=== PATIENT | female | born 1995 | race Caucasian/White ===

== ENCOUNTER 2018-05-04 01:18 | Emergency (ER) | payer OTHER ==
[~2018-05-04] VITALS: Ht 172.7 cm; Wt 123.8 kg
--- NOTE | 2018-05-04 01:45 | NUR ---
ER AT BEDSIDE
--- NOTE | 2018-05-04 01:45 | NUR ---
-2 station, no dilation and effacement, no vaginal discharge/bloody show noted
[2018-05-04 01:51] LABS: BASOPHILS % 0.2 % (0.0-1.0); EOSINOPHILS # (AUTO) 0.1 (0.0-0.4); EOSINOPHILS % 1.1 % (0.0-6.0); HEMATOCRIT 33.8 % (34.2-44.1); HEMOGLOBIN 10.6 g/dL (12.0-16.0); LYMPHOCYTES % 15.3 % (18.0-39.1); MEAN CORPUSCULAR HEMOGLOBIN 27.3 pg (28-32); MEAN CORPUSCULAR HGB CONC 31.4 g/dL (31-35); MEAN CORPUSCULAR VOLUME 87.1 fL (81-99); MONOCYTES # (AUTO) 0.8 (0.2-0.8); MONOCYTES % 5.9 % (4.4-11.3); NEUTROPHILS # (AUTO) 9.9 (2.1-6.9); NEUTROPHILS % 76.3 % (38.7-80.0); PLATELET COUNT 319 x10e3/uL (140-360); RED BLOOD COUNT 3.88 x10e6/uL (3.6-5.1); RED CELL DISTRIBUTION WIDTH 14.7 % (11.7-14.4)
[2018-05-04 01:58] LABS: ALBUMIN 2.2 g/dL (3.5-5.0); ALBUMIN/GLOBULIN RATIO 0.5 (0.8-2.0); ALKALINE PHOSPHATASE 117 IU/L (40-150); ANION GAP 12.6 mmol/L (8-16); BLOOD UREA NITROGEN 10 mg/dL (7-26); BUN/CREATININE RATIO 15 (6-25); CALCIUM 10.2 mg/dL (8.4-10.2); CARBON DIOXIDE 22 mmol/L (22-29); CHLORIDE 107 mmol/L (98-107); CREATININE, SERUM 0.66 mg/dL (0.57-1.11); EST GLOMERULAR FILTRATION RATE > 60 ML/MIN (60-); GLUCOSE 102 mg/dL (74-118); MAGNESIUM 1.7 MG/DL (1.3-2.1); POTASSIUM 4.6 mmol/L (3.5-5.1); SODIUM 137 mmol/L (136-145)
[2018-05-04 02:00] LABS: ALANINE AMINOTRANSFERASE < 6 IU/L (0-55)
== END 2018-05-04 02:22 | disposition other institution (70) ==
LOC: ER 01:18
DX: O60.03 Preterm labor without delivery, third trimester (principal); E11.9 Type 2 diabetes mellitus without complications
CPT/HCPCS: 36415; 80053; 83735; 85025; 99284

== ENCOUNTER 2019-10-15 09:37 | Emergency (ER) | payer SELFPAY ==
[~2019-10-15] VITALS: Ht 172.7 cm; Wt 123.8 kg
--- OUTSIDE RECORDS SUMMARY | 2019-10-15 09:57 | XMS REPORT | Continuity of Care Document ---
Author Author [facility] t Organization [facility] Address [address] [place] [address] Phone Unavailable Care Team Providers Care Contracting Analyst Name Role Phone NONSTAFF PCP Unavailable Doctor Unassigned, Name No Attphys Unavailable Ingacio Redd RN Attphys Unavailable Robe Rubin DO Attphys Yang Mendez Attphys Payers Payer Name Policy Type Policy Number Effective Date Expiration Date S ource Problems This patient has no known problems. Allergies, Adverse Reactions, Alerts Allergy Name Allergy Type Status Severity Reaction(s) Onset Date Inacti ve Date Treating Clinician Comments Source No Known Allergies DA Active U 2019-01-23 00:00:00 [facility] No Known Allergies DA Active U 2018-05-04 00:00:00 [facility] No Known Allergies DA Active U 2018-04-16 00:00:00 [facility] Medications This patient has no known medications. Procedures This patient has no known procedures. Encounters Start Date/Time End Date/Time Encounter Type [facility] Encounter ID Source 2019-09-02 00:00:00 2019-09-02 00:00:00 Refill Doctor Unassigned, [place] [facility] [id number] 2019-08-08 00:00:00 2019-08-08 00:00:00 Telephone Tramaine Adeola Pierre [facility] [id number] 2019-08-04 14:59:40 2019-08-04 16:20:00 Emergency Scottie [facility] ([facility]) [id number] 2019-03-07 00:00:00 2019-03-07 00:00:00 Letter (Out) Yang [facility] [id number] 2019-02-24 17:34:53 2019-02-24 18:22:00 Emergency Yang [facility] [id number] 2019-02-15 00:00:00 2019-02-15 00:00:00 Orders Only D octor Unassigned, [place] [facility] [id number] 2018-05-04 01:18:00 2018-05-04 02:22:00 Departed Emergency Room [facility] [id number] [facility] Results Test Description Test Time Test Comments Results Result Comments Source CBC W/AUTO DIFF 2018-05-05 08:00:00 Test Item WHITE BLOOD CELL (test code = WBC) 11.9 K/mm3 4.5-12.5 N RED BLOOD CELL (test code = RBC) 2.98 mill/mm3 3.7-5.2 L HEMOGLOBIN (test code = HGB) 7.8 gram/dL 11.5-15.5 L HEMATOCRIT (test code = HCT) 27.1 % 36.0-46.0 L MEAN CELL VOLUME (test code = MCV) 90.9 fL 80-98 N MEAN CELL HGB (test code = MCH) 26.2 picogram 27.0-33.0 L MEAN CELL HGB CONCETRATION (test code = MCHC) 28.8 gram/dL 33.0-36. 0 L RED CELL DISTRIBUTION WIDTH (test code = RDW) 15.4 % 11.6-16. 2 N RED CELL DISTRIBUTION WIDTH SD (test code = RDW-SD) 49.2 fL 37 .0-51.0 N PLATELET COUNT (test code = PLT) 240 K/mm3 150-450 MEAN PLATELET VOLUME (test code = MPV) 9.7 fL 6.7-11.0 N NEUTROPHIL % (test code = NT%) 74.3 % 39.0-69.0 H IMMATURE GRANULOCYTE % (test code = IG%) 0.9 % 0.0-5.0 N LYMPHOCYTE % (test code = LY%) 16.2 % 25.0-55.0 L MONOCYTE % (test code = MO%) 7.7 % 0.0-10.0 N EOSINOPHIL % (test code = EO%) 0.5 % 0.0-5.0 N BASOPHIL % (test code = BA%) 0.4 % 0.0-1.0 N NUCLEATED RBC % (test code = NRBC%) 0.0 % 0-0 N NEUTROPHIL # (test code = NT#) 8.86 K/mm3 1.8-7.7 H IMMATURE GRANULOCYTE # (test code = IG#) 0.11 x10 3/uL 0-0.03 H LYMPHOCYTE # (test code = LY#) 1.94 K/mm3 1.0-5.0 N MONOCYTE # (test code = MO#) 0.92 K/mm3 0-0.8 H EOSINOPHIL # (test code = EO#) 0.06 K/mm3 0.0-0.5 N BASOPHIL # (test code = BA#) 0.05 K/mm3 0.0-0.2 N NUCLEATED RBC # (test code = NRBC#) 0.00 K/mm3 0.0-0.1 N MANUAL DIFF REQUIRED (test code = MDIFF) NO, ONLY SCAN NEEDED COMMENTS TO SOFTWARE QA MANAGER: 1ST DAYDIFFERENTIAL [id number] 08:00:00 * Test Item Value Reference Range Interpretation Comments STAIN ACCEPTABILITY (test code = STN ACCEPTABLE) STAIN ACCEPTABLE MORPHOLOGY COMMENT (test code = MOC) NORMAL PLATELET ESTIMATE (test code = PLTEST) ADEQUATE PLATELET MORPHOLOGY (test code = PLTMORPH) NORMAL COMMENTS TO SOFTWARE QA MANAGER: 1ST DAYCBC W/AUTO [id number] 06:39:00* Test Item Value Reference Range Interpretation Comments WHITE BLOOD CELL (test code = WBC) 11.9 K/mm3 4.5-12.5 N RED BLOOD CELL (test code = RBC) 2.98 mill/mm3 3.7-5.2 L HEMOGLOBIN (test code = HGB) 7.8 gram/dL 11.5-15.5 L HEMATOCRIT (test code = HCT) 27.1 % 36.0-46.0 L MEAN CELL VOLUME (test code = MCV) 90.9 fL 80-98 N MEAN CELL HGB (test code = MCH) 26.2 picogram 27.0-33.0 L MEAN CELL HGB CONCETRATION (test code = MCHC) 28.8 gram/dL 33.0-36. 0 L RED CELL DISTRIBUTION WIDTH (test code = RDW) 15.4 % 11.6-16. 2 N RED CELL DISTRIBUTION WIDTH SD (test code = RDW-SD) 49.2 fL 37 .0-51.0 N PLATELET COUNT (test code = PLT) 240 K/mm3 150-450 MEAN PLATELET VOLUME (test code = MPV) 9.7 fL 6.7-11.0 N NEUTROPHIL % (test code = NT%) 74.3 % 39.0-69.0 H IMMATURE GRANULOCYTE % (test code = IG%) 0.9 % 0.0-5.0 N LYMPHOCYTE % (test code = LY%) 16.2 % 25.0-55.0 L MONOCYTE % (test code = MO%) 7.7 % 0.0-10.0 N EOSINOPHIL % (test code = EO%) 0.5 % 0.0-5.0 N BASOPHIL % (test code = BA%) 0.4 % 0.0-1.0 N NUCLEATED RBC % (test code = NRBC%) 0.0 % 0-0 N NEUTROPHIL # (test code = NT#) 8.86 K/mm3 1.8-7.7 H IMMATURE GRANULOCYTE # (test code = IG#) 0.11 x10 3/uL 0-0.03 H LYMPHOCYTE # (test code = LY#) 1.94 K/mm3 1.0-5.0 N MONOCYTE # (test code = MO#) 0.92 K/mm3 0-0.8 H EOSINOPHIL # (test code = EO#) 0.06 K/mm3 0.0-0.5 N BASOPHIL # (test code = BA#) 0.05 K/mm3 0.0-0.2 N NUCLEATED RBC # (test code = NRBC#) 0.00 K/mm3 0.0-0.1 N MANUAL DIFF REQUIRED (test code = MDIFF) NO, ONLY SCAN NEEDED COMMENTS TO SOFTWARE QA MANAGER: 1ST DAYDIFFERENTIAL [id number] 06:39:00 * Test Item Value Reference Range Interpretation Comments STAIN ACCEPTABILITY (test code = STN ACCEPTABLE) CABOT RINGS (test code = CAB) MORPHOLOGY COMMENT (test code = MOC) PLATELET ESTIMATE (test code = PLTEST) PLATELET MORPHOLOGY (test code = PLTMORPH) COMMENTS TO SOFTWARE QA MANAGER: 1ST DAYCBC W/AUTO [id number] 06:39:00* Test Item Value Reference Range Interpretation Comments WHITE BLOOD CELL (test code = WBC) 11.9 K/mm3 4.5-12.5 N RED BLOOD CELL (test code = RBC) 2.98 mill/mm3 3.7-5.2 L HEMOGLOBIN (test code = HGB) 7.8 gram/dL 11.5-15.5 L HEMATOCRIT (test code = HCT) 27.1 % 36.0-46.0 L MEAN CELL VOLUME (test code = MCV) 90.9 fL 80-98 N MEAN CELL HGB (test code = MCH) 26.2 picogram 27.0-33.0 L MEAN CELL HGB CONCETRATION (test code = MCHC) 28.8 gram/dL 33.0-36. 0 L RED CELL DISTRIBUTION WIDTH (test code = RDW) 15.4 % 11.6-16. 2 N RED CELL DISTRIBUTION WIDTH SD (test code = RDW-SD) 49.2 fL 37 .0-51.0 N PLATELET COUNT (test code = PLT) 240 K/mm3 150-450 MEAN PLATELET VOLUME (test code = MPV) 9.7 fL 6.7-11.0 N NEUTROPHIL % (test code = NT%) 74.3 % 39.0-69.0 H IMMATURE GRANULOCYTE % (test code = IG%) 0.9 % 0.0-5.0 N LYMPHOCYTE % (test code = LY%) 16.2 % 25.0-55.0 L MONOCYTE % (test code = MO%) 7.7 % 0.0-10.0 N EOSINOPHIL % (test code = EO%) 0.5 % 0.0-5.0 N BASOPHIL % (test code = BA%) 0.4 % 0.0-1.0 N NUCLEATED RBC % (test code = NRBC%) 0.0 % 0-0 N NEUTROPHIL # (test code = NT#) 8.86 K/mm3 1.8-7.7 H IMMATURE GRANULOCYTE # (test code = IG#) 0.11 x10 3/uL 0-0.03 H LYMPHOCYTE # (test code = LY#) 1.94 K/mm3 1.0-5.0 N MONOCYTE # (test code = MO#) 0.92 K/mm3 0-0.8 H EOSINOPHIL # (test code = EO#) 0.06 K/mm3 0.0-0.5 N BASOPHIL # (test code = BA#) 0.05 K/mm3 0.0-0.2 N NUCLEATED RBC # (test code = NRBC#) 0.00 K/mm3 0.0-0.1 N MANUAL DIFF REQUIRED (test code = MDIFF) NO, ONLY SCAN NEEDED COMMENTS TO SOFTWARE QA MANAGER: 1ST DAYDIFFERENTIAL [id number] 06:39:00 * Test Item Value Reference Range Interpretation Comments STAIN ACCEPTABILITY (test code = STN ACCEPTABLE) CABOT RINGS (test code = CAB) MORPHOLOGY COMMENT (test code = MOC) PLATELET ESTIMATE (test code = PLTEST) PLATELET MORPHOLOGY (test code = PLTMORPH) COMMENTS TO SOFTWARE QA MANAGER: 1ST DAYCBC W/AUTO [id number] 06:39:00* Test Item Value Reference Range Interpretation Comments WHITE BLOOD CELL (test code = WBC) 11.9 K/mm3 4.5-12.5 N RED BLOOD CELL (test code = RBC) 2.98 mill/mm3 3.7-5.2 L HEMOGLOBIN (test code = HGB) 7.8 gram/dL 11.5-15.5 L HEMATOCRIT (test code = HCT) 27.1 % 36.0-46.0 L MEAN CELL VOLUME (test code = MCV) 90.9 fL 80-98 N MEAN CELL HGB (test code = MCH) 26.2 picogram 27.0-33.0 L MEAN CELL HGB CONCETRATION (test code = MCHC) 28.8 gram/dL 33.0-36. 0 L RED CELL DISTRIBUTION WIDTH (test code = RDW) 15.4 % 11.6-16. 2 N RED CELL DISTRIBUTION WIDTH SD (test code = RDW-SD) 49.2 fL 37 .0-51.0 N PLATELET COUNT (test code = PLT) 240 K/mm3 150-450 MEAN PLATELET VOLUME (test code = MPV) 9.7 fL 6.7-11.0 N NEUTROPHIL % (test code = NT%) 74.3 % 39.0-69.0 H IMMATURE GRANULOCYTE % (test code = IG%) 0.9 % 0.0-5.0 N LYMPHOCYTE % (test code = LY%) 16.2 % 25.0-55.0 L MONOCYTE % (test code = MO%) 7.7 % 0.0-10.0 N EOSINOPHIL % (test code = EO%) 0.5 % 0.0-5.0 N BASOPHIL % (test code = BA%) 0.4 % 0.0-1.0 N NUCLEATED RBC % (test code = NRBC%) 0.0 % 0-0 N NEUTROPHIL # (test code = NT#) 8.86 K/mm3 1.8-7.7 H IMMATURE GRANULOCYTE # (test code = IG#) 0.11 x10 3/uL 0-0.03 H LYMPHOCYTE # (test code = LY#) 1.94 K/mm3 1.0-5.0 N MONOCYTE # (test code = MO#) 0.92 K/mm3 0-0.8 H EOSINOPHIL # (test code = EO#) 0.06 K/mm3 0.0-0.5 N BASOPHIL # (test code = BA#) 0.05 K/mm3 0.0-0.2 N NUCLEATED RBC # (test code = NRBC#) 0.00 K/mm3 0.0-0.1 N MANUAL DIFF REQUIRED (test code = MDIFF) NO, ONLY SCAN NEEDED COMMENTS TO SOFTWARE QA MANAGER: 1ST DAYDIFFERENTIAL [id number] 06:39:00 * Test Item Value Reference Range Interpretation Comments STAIN ACCEPTABILITY (test code = STN ACCEPTABLE) MORPHOLOGY COMMENT (test code = MOC) PLATELET ESTIMATE (test code = PLTEST) PLATELET MORPHOLOGY (test code = PLTMORPH) COMMENTS TO SOFTWARE QA MANAGER: 1ST DAYCBC W/AUTO [id number] 06:39:00* Test Item Value Reference Range Interpretation Comments WHITE BLOOD CELL (test code = WBC) 11.9 K/mm3 4.5-12.5 N RED BLOOD CELL (test code = RBC) 2.98 mill/mm3 3.7-5.2 L HEMOGLOBIN (test code = HGB) 7.8 gram/dL 11.5-15.5 L HEMATOCRIT (test code = HCT) 27.1 % 36.0-46.0 L MEAN CELL VOLUME (test code = MCV) 90.9 fL 80-98 N MEAN CELL HGB (test code = MCH) 26.2 picogram 27.0-33.0 L MEAN CELL HGB CONCETRATION (test code = MCHC) 28.8 gram/dL 33.0-36. 0 L RED CELL DISTRIBUTION WIDTH (test code = RDW) 15.4 % 11.6-16. 2 N RED CELL DISTRIBUTION WIDTH SD (test code = RDW-SD) 49.2 fL 37 .0-51.0 N PLATELET COUNT (test code = PLT) 240 K/mm3 150-450 MEAN PLATELET VOLUME (test code = MPV) 9.7 fL 6.7-11.0 N NEUTROPHIL % (test code = NT%) 74.3 % 39.0-69.0 H IMMATURE GRANULOCYTE % (test code = IG%) 0.9 % 0.0-5.0 N LYMPHOCYTE % (test code = LY%) 16.2 % 25.0-55.0 L MONOCYTE % (test code = MO%) 7.7 % 0.0-10.0 N EOSINOPHIL % (test code = EO%) 0.5 % 0.0-5.0 N BASOPHIL % (test code = BA%) 0.4 % 0.0-1.0 N NUCLEATED RBC % (test code = NRBC%) 0.0 % 0-0 N NEUTROPHIL # (test code = NT#) 8.86 K/mm3 1.8-7.7 H IMMATURE GRANULOCYTE # (test code = IG#) 0.11 x10 3/uL 0-0.03 H LYMPHOCYTE # (test code = LY#) 1.94 K/mm3 1.0-5.0 N MONOCYTE # (test code = MO#) 0.92 K/mm3 0-0.8 H EOSINOPHIL # (test code = EO#) 0.06 K/mm3 0.0-0.5 N BASOPHIL # (test code = BA#) 0.05 K/mm3 0.0-0.2 N NUCLEATED RBC # (test code = NRBC#) 0.00 K/mm3 0.0-0.1 N MANUAL DIFF REQUIRED (test code = MDIFF) NO, ONLY SCAN NEEDED COMMENTS TO SOFTWARE QA MANAGER: DAYDIFFERENTIAL [id number] 06:39:00 * Test Item Value Reference Range Interpretation Comments STAIN ACCEPTABILITY (test code = STN ACCEPTABLE) CABOT RINGS (test code = CAB) MORPHOLOGY COMMENT (test code = MOC) PLATELET ESTIMATE (test code = PLTEST) PLATELET MORPHOLOGY (test code = PLTMORPH) COMMENTS TO SOFTWARE QA MANAGER: DAYBASIC METABOLIC [id number] 06:19:00* Test Item Value Reference Range Interpretation Comments SODIUM (test code = NA) 139 mmol/L 136-145 N POTASSIUM (test code = K) 4.8 mmol/L 3.5-5.1 N CHLORIDE (test code = CL) 107.0 mmol/L 98-107 N CARBON DIOXIDE (test code = CO2) 24.0 mmol/L 21-32 N ANION GAP (test code = GAP) 12.8 10-20 N GLUCOSE (test code = GLU) 86 mg/dL 74-106 N BLOOD UREA NITROGEN (test code = BUN) 14 mg/dL 7-18 N GLOMERULAR FILTRATION RATE (test code = GFR) > 60 mL/min >=60 Estimated GFR by using Modified MDRD formula.Chronic kidney disease is defined as either kidney damageor GFR <60 mL/min/1.73 m2 for >3 months. CREATININE (test code = CREAT) 0.80 mg/dL 0.55-1.02 N Note change in reference range due to change in reagent. BUN/CREATININE RATIO (test code = BUN/CREA) 17.5 10-20 N CALCIUM (test code = CA) 8.5 mg/dL 8.5-10.1 N BASIC METABOLIC [id number] 06:08:00* Test Item Value Reference Range Interpretation Comments SODIUM (test code = NA) 139 mmol/L 136-145 N POTASSIUM (test code = K) 4.8 mmol/L 3.5-5.1 N CHLORIDE (test code = CL) 107.0 mmol/L 98-107 N CARBON DIOXIDE (test code = CO2) mmol/L 21-32 ANION GAP (test code = GAP) 10-20 GLUCOSE (test code = GLU) mg/dL 74-106 BLOOD UREA NITROGEN (test code = BUN) mg/dL 7-18 GLOMERULAR FILTRATION RATE (test code = GFR) mL/min >=60 CREATININE (test code = CREAT) mg/dL 0.55-1.02 BUN/CREATININE RATIO (test code = BUN/CREA) 10-20 CALCIUM (test code = CA) mg/dL 8.5-10.1 - US [id number] 09:32:00 Name: YAYA DOYLE [facility] : 1995 Age/S: 22 / F [address] [facility] Unit #: [id number] Loc: [place] [address] Phys: Colby Wolf MD Acct: [id number] Dis Date: Status: ADM IN PHONE #: [phone] Exam Date: 05/04/2018 0904 FAX #: [phone] Reason: assess EFW in gestational diabetic in with SROM EXAMS: CPT CODE: [id number] [place] LTD 55583 HISTORY: EFW evaluation with gestational diabetic with spontaneous rupture of membranes. Limited ultrasound. COMPARISON: None available. Single live intrauterine gestation in cephalic presentation. Cardiac activity documented at 134 beats per minutes. Placental position is fundal, grade is 3. No previa is visible. Estimated weight was calculated to 4095 g or 9 pounds and 0 ounces which is greater than 97th percentile. IMPRESSION: Estimated weight of 4095 g or 9 pounds and 0 ounces which is within greater than 97th percentile. at 0932 Reported and signed by: Brian Luu M.D. CC: Kahlil Cobb MD; Rosemarie Silveira CNM; Colby Wolf MD Technologist: NAHID NATH Trnvtb Date/Time: 05/04/2018 (0932) [email or web address] Orig Print D/T: S: 05/04/2018 (0935) Probe: PAGE 1 Signed Report HIV 1 2 COMBO AG/AB [id number] 07:23:00* Test Item Value Reference Range Interpretation Comments HIV 1 2 COMBO AG/AB SCREEN (test code = [id number]) AB/AG NO N REACTIVE NONREACTIVE NONREACTIVE HIV P24 ANTI GEN NONREACTIVE NONREACTIVE HIV 1&2 ANTIBODY NONREACTIVE THE HIV-1 P24 TEST HELPS DISTINGUISH ACUTE HIV-1INFECTIONFROM ESTABLISHED HIV-1 INFECTION WHEN THE SPECIMEN ISPOSITIVE FOR HIV-1 P24 ANTIGEN. HIV-1 P24 ANTIGEN IS HIGHEST IN THE FIRST FEW WEEKS AFTERINFECTION URINALYSIS [id number] 06:25:00* Test Item Value Reference Range Interpretation Comments UA COLOR (test code = COLU) DARK YELLOW YELLOW A UA APPEARANCE (test code = APPU) SLIGHTLY CLOUDY CLEAR A UA GLUCOSE DIPSTICK (test code = DGLUU) NEGATIVE mg/dL NEGATIVE UA BILIRUBIN DIPSTICK (test code = BILU) NEGATIVE mg/dL NEGATIVE UA KETONE DIPSTICK (test code = KETU) 20 (Small) mg/dL NEGATIVE A UA SPECIFIC GRAVITY (test code = SGU) 1.026 1.001-1.035 UA BLOOD DIPSTICK (test code = HESHAM) Negative NEGATIVE UA PH DIPSTICK (test code = JASIEL) 6.0 5.0-8.0 UA PROTEIN DIPSTICK (test code = PROU) 100 (2+) mg/dL NEGATIVE A UA UROBILINIOGEN DIPSTICK (test code = URO) NEGATIVE mg/dL NEGATIVE UA NITRITE DIPSTICK (test code = ASTRID) NEGATIVE NEGATIVE UA LEUKOCYTE ESTERASE W REFLEX (test code = LEUUR) NEGATIVE NEG ATIVE UA WBC (test code = WBCU) 0-5 per HPF 0-5 UA RBC (test code = RBCU) 0-2 #/HPF 0-5 UA EPITHELIAL CELLS (test code = EPIU) FEW per HPF FEW UA HYALINE CAST (test code = HYALU) 0-2 #/LPF 0-5 UA MUCUS (test code = MUCU) MODERATE #/LPF FEW A AG HEPAT B [id number] 06:21:00* Test Item Value Reference Range Interpretation Comments AG HEPAT B SURF (test code = HBSAG) Nonreactive Index Nonreactive AB RUBELLA [id number] 06:21:00* Test Item Value Reference Range Interpretation Comments AB RUBELLA IGG (test code = RUBGAB) Positive IUnit/mL <5.0=Neg IU/ML INTERPRETATION OF SERUM RUBELLA-IGG AB --------- < 5.0 NEGATIVE - NO RUBELLA IGG ANTIBODY DETECTED5.0-9.9 EQUIVOCAL>= 10.0 POSITIVE - RUBELLA IGG ANTIBODY DETECTED AB [id number] 06:21:00* Test Item Value Reference Range Interpretation Comments AB TREPONEMA (test code = TREPAB) Nonreactive Index NonReactive AG HEPAT B [id number] 06:15:00* Test Item Value Reference Range Interpretation Comments AG HEPAT B SURF (test code = HBSAG) Nonreactive Index Nonreactive AB RUBELLA [id number] 06:15:00* Test Item Value Reference Range Interpretation Comments AB RUBELLA IGG (test code = RUBGAB) IUnit/mL <5.0=Neg AB [id number] 06:15:00* Test Item Value Reference Range Interpretation Comments AB TREPONEMA (test code = TREPAB) Index NonReactive CBC W/AUTO [id number] 06:10:00* Test Item Value Reference Range Interpretation Comments WHITE BLOOD CELL (test code = WBC) 14.6 K/mm3 4.5-12.5 H RED BLOOD CELL (test code = RBC) 3.64 mill/mm3 3.7-5.2 L HEMOGLOBIN (test code = HGB) 9.9 gram/dL 11.5-15.5 L HEMATOCRIT (test code = HCT) 31.7 % 36.0-46.0 L MEAN CELL VOLUME (test code = MCV) 87.1 fL 80-98 N MEAN CELL HGB (test code = MCH) 27.2 picogram 27.0-33.0 N MEAN CELL HGB CONCETRATION (test code = MCHC) 31.2 gram/dL 33.0-36. 0 L RED CELL DISTRIBUTION WIDTH (test code = RDW) 14.6 % 11.6-16. 2 N RED CELL DISTRIBUTION WIDTH SD (test code = RDW-SD) 45.7 fL 37 .0-51.0 N PLATELET COUNT (test code = PLT) 318 K/mm3 150-450 N MEAN PLATELET VOLUME (test code = MPV) 9.8 fL 6.7-11.0 N NEUTROPHIL % (test code = NT%) 83.8 % 39.0-69.0 H IMMATURE GRANULOCYTE % (test code = IG%) 0.9 % 0.0-5.0 N LYMPHOCYTE % (test code = LY%) 9.1 % 25.0-55.0 L MONOCYTE % (test code = MO%) 5.5 % 0.0-10.0 N EOSINOPHIL % (test code = EO%) 0.5 % 0.0-5.0 N BASOPHIL % (test code = BA%) 0.2 % 0.0-1.0 N NUCLEATED RBC % (test code = NRBC%) 0.0 % 0-0 N NEUTROPHIL # (test code = NT#) 12.23 K/mm3 1.8-7.7 H IMMATURE GRANULOCYTE # (test code = IG#) 0.13 x10 3/uL 0-0.03 H LYMPHOCYTE # (test code = LY#) 1.33 K/mm3 1.0-5.0 N MONOCYTE # (test code = MO#) 0.80 K/mm3 0-0.8 N EOSINOPHIL # (test code = EO#) 0.08 K/mm3 0.0-0.5 N BASOPHIL # (test code = BA#) 0.03 K/mm3 0.0-0.2 N NUCLEATED RBC # (test code = NRBC#) 0.00 K/mm3 0.0-0.1 N MANUAL DIFF REQUIRED (test code = MDIFF) NO COMPREHENSIVE METABOLIC [id number] 05:59:00* Test Item Value Reference Range Interpretation Comments SODIUM (test code = NA) 140 mmol/L 136-145 N POTASSIUM (test code = K) 4.7 mmol/L 3.5-5.1 N CHLORIDE (test code = CL) 108.0 mmol/L 98-107 H CARBON DIOXIDE (test code = CO2) 23.0 mmol/L 21-32 N ANION GAP (test code = GAP) 13.7 10-20 N GLUCOSE (test code = GLU) 94 mg/dL 74-106 N BLOOD UREA NITROGEN (test code = BUN) 11 mg/dL 7-18 N GLOMERULAR FILTRATION RATE (test code = GFR) > 60 mL/min >=60 Estimated GFR by using Modified MDRD formula.Chronic kidney disease is defined as either kidney damageor GFR <60 mL/min/1.73 m2 for >3 months. CREATININE (test code = CREAT) 0.60 mg/dL 0.55-1.02 N Note change in reference range due to change in reagent. BUN/CREATININE RATIO (test code = BUN/CREA) 18.3 10-20 N TOTAL PROTEIN (test code = PROT) 6.7 gram/dL 6.4-8.2 N ALBUMIN (test code = ALB) 2.3 g/dL 3.4-5.0 L GLOBULIN (test code = GLOB) 4.4 gram/dL 2.7-4.2 H ALBUMIN/GLOBULIN RATIO (test code = A/G) 0.5 0.75-1.50 L CALCIUM (test code = CA) 9.8 mg/dL 8.5-10.1 N BILIRUBIN TOTAL (test code = BILT) 0.20 mg/dL 0.0-1.0 N SGOT/AST (test code = AST) 10 IUnit/L 15-37 L SGPT/ALT (test code = ALT) 9 IUnit/L 12-78 L ALKALINE PHOSPHATASE TOTAL (test code = ALKP) 117 IUnit/L 45-117 N Note change in reference range due to change in reagent. COMPREHENSIVE METABOLIC [id number] 05:53:00* Test Item Value Reference Range Interpretation Comments SODIUM (test code = NA) 140 mmol/L 136-145 N POTASSIUM (test code = K) 4.7 mmol/L 3.5-5.1 N CHLORIDE (test code = CL) 108.0 mmol/L 98-107 H CARBON DIOXIDE (test code = CO2) mmol/L 21-32 ANION GAP (test code = GAP) 10-20 GLUCOSE (test code = GLU) mg/dL 74-106 BLOOD UREA NITROGEN (test code = BUN) mg/dL 7-18 GLOMERULAR FILTRATION RATE (test code = GFR) mL/min >=60 CREATININE (test code = CREAT) mg/dL 0.55-1.02 BUN/CREATININE RATIO (test code = BUN/CREA) 10-20 TOTAL PROTEIN (test code = PROT) gram/dL 6.4-8.2 ALBUMIN (test code = ALB) g/dL 3.4-5.0 GLOBULIN (test code = GLOB) gram/dL 2.7-4.2 ALBUMIN/GLOBULIN RATIO (test code = A/G) 0.75-1.50 CALCIUM (test code = CA) mg/dL 8.5-10.1 BILIRUBIN TOTAL (test code = BILT) mg/dL 0.0-1.0 SGOT/AST (test code = AST) IUnit/L 15-37 SGPT/ALT (test code = ALT) IUnit/L 12-78 ALKALINE PHOSPHATASE TOTAL (test code = ALKP) IUnit/L 45-117 URINALYSIS [id number] 05:51:00* Test Item Value Reference Range Interpretation Comments UA COLOR (test code = COLU) DARK YELLOW YELLOW A UA APPEARANCE (test code = APPU) SLIGHTLY CLOUDY CLEAR A UA GLUCOSE DIPSTICK (test code = DGLUU) NEGATIVE mg/dL NEGATIVE UA BILIRUBIN DIPSTICK (test code = BILU) NEGATIVE mg/dL NEGATIVE UA KETONE DIPSTICK (test code = KETU) 20 (Small) mg/dL NEGATIVE A UA SPECIFIC GRAVITY (test code = SGU) 1.026 1.001-1.035 UA BLOOD DIPSTICK (test code = HESHAM) Negative NEGATIVE UA PH DIPSTICK (test code = JASIEL) 6.0 5.0-8.0 UA PROTEIN DIPSTICK (test code = PROU) 100 (2+) mg/dL NEGATIVE A UA UROBILINIOGEN DIPSTICK (test code = URO) NEGATIVE mg/dL NEGATIVE UA NITRITE DIPSTICK (test code = ASTRID) NEGATIVE NEGATIVE UA LEUKOCYTE ESTERASE W REFLEX (test code = LEUUR) NEGATIVE NEG ATIVE UA WBC (test code = WBCU) per HPF 0-5 URINALYSIS [id number] 05:51:00* Test Item Value Reference Range Interpretation Comments UA COLOR (test code = COLU) DARK YELLOW YELLOW A UA APPEARANCE (test code = APPU) SLIGHTLY CLOUDY CLEAR A UA GLUCOSE DIPSTICK (test code = DGLUU) NEGATIVE mg/dL NEGATIVE UA BILIRUBIN DIPSTICK (test code = BILU) NEGATIVE mg/dL NEGATIVE UA KETONE DIPSTICK (test code = KETU) 20 (Small) mg/dL NEGATIVE A UA SPECIFIC GRAVITY (test code = SGU) 1.026 1.001-1.035 UA BLOOD DIPSTICK (test code = HESHAM) Negative NEGATIVE UA PH DIPSTICK (test code = JASIEL) 6.0 5.0-8.0 UA PROTEIN DIPSTICK (test code = PROU) 100 (2+) mg/dL NEGATIVE A UA UROBILINIOGEN DIPSTICK (test code = URO) NEGATIVE mg/dL NEGATIVE UA NITRITE DIPSTICK (test code = ASTRID) NEGATIVE NEGATIVE UA LEUKOCYTE ESTERASE W REFLEX (test code = LEUUR) NEGATIVE NEG ATIVE UA WBC (test code = WBCU) per HPF 0-5 White Blood [id number] 02:03:00* Test Item Value Reference Range Interpretation Comments White Blood Count (test code = 6690-2) 13.03 4.8-10.8 [facility] [id number] 02:03:00* Test Item Value Reference Range Interpretation Comments Red Blood Count (test code = 789-8) 3.88 3.6-5.1 [facility]:03[facility]* Test Item Value Reference Range Interpretation Comments Hemoglobin (test code = 45277-4) 10.6 12.0-16.0 L [facility] 02:03:00* Test Item Value Reference Range Interpretation Comments Hematocrit (test code = 4544-3) 33.8 34.2-44.1 L [facility] Corp[facility] [id number] 02:03:00* Test Item Value Reference Range Interpretation Comments Mean Corpuscular Volume (test code = 787-2) 87.1 81-99 [facility] [id number] 02:03:00* Test Item Value Reference Range Interpretation Comments Mean Corpuscular Hemoglobin (test code = 785-6) 27.3 28-32 L [facility] Hemoglobin Concent 2018-05-04 02:03:00* Test Item Value Reference Range Interpretation Comments Mean Corpuscular Hemoglobin Concent (test code = 786-4) 31.4 31-35 [facility] [id number] 02:03:00* Test Item Value Reference Range Interpretation Comments Red Cell Distribution Width (test code = 82866-5) 14.7 11.7 -14.4 [facility] TexasPlatelet [id number] 02:03:00* Test Item Value Reference Range Interpretation Comments Platelet Count (test code = 777-3) 319 140-360 [facility] TexasNeutrophils (%) (Auto)2018-05-04 02:03:00 * Test Item Value Reference Range Interpretation Comments Neutrophils (%) (Auto) (test code = 06484-8) 76.3 38.7-80.0 [facility] TexasLymphocytes (%) (Auto)2018-05-04 02:03:00 * Test Item Value Reference Range Interpretation Comments Lymphocytes (%) (Auto) (test code = 736-9) 15.3 18.0-39.1 L [facility] TexasMonocytes (%) (Auto)2018-05-04 02:03:00* Test Item Value Reference Range Interpretation Comments Monocytes (%) (Auto) (test code = 5905-5) 5.9 4.4-11.3 [facility] TexasEosinophils (%) (Auto)2018-05-04 02:03:00 * Test Item Value Reference Range Interpretation Comments Eosinophils (%) (Auto) (test code = 713-8) 1.1 0.0-6.0 [facility] TexasBasophils (%) (Auto)2018-05-04 02:03:00* Test Item Value Reference Range Interpretation Comments Basophils (%) (Auto) (test code = 706-2) 0.2 0.0-1.0 [facility] TexasIM GRANULOCYTES %2018-05-04 02:03:00* Test Item Value Reference Range Interpretation Comments IM GRANULOCYTES % (test code = IM GRANULOCYTES %) 1.2 0.0- 1.0 H [facility] TexasNeutrophils # (Auto)2018-05-04 02:03:00* Test Item Value Reference Range Interpretation Comments Neutrophils # (Auto) (test code = 751-8) 9.9 2.1-6.9 H [facility] TexasLymphocytes # (Auto)2018-05-04 02:03:00* Test Item Value Reference Range Interpretation Comments Lymphocytes # (Auto) (test code = 10459-6) 2.0 1.0-3.2 [facility] TexasMonocytes # (Auto)2018-05-04 02:03:00* Test Item Value Reference Range Interpretation Comments Monocytes # (Auto) (test code = 742-7) 0.8 0.2-0.8 [facility] TexasEosinophils # (Auto)2018-05-04 02:03:00* Test Item Value Reference Range Interpretation Comments Eosinophils # (Auto) (test code = 711-2) 0.1 0.0-0.4 [facility] TexasBasophils # (Auto)2018-05-04 02:03:00* Test Item Value Reference Range Interpretation Comments Basophils # (Auto) (test code = 704-7) 0.0 0.0-0.1 [facility] TexasAbsolute Immature Granulocyte (auto 2018-05-04 02:03:00* Test Item Value Reference Range Interpretation Comments Absolute Immature Granulocyte (auto (marlon t code = Absolute Immature Granulocyte (auto) 0.16 0-0.1 H [facility]odium [id number] 02:00:00* Test Item Value Reference Range Interpretation Comments Sodium Level (test code = 2951-2) 137 136-145 [facility] TexasPotassium [id number] 02:00:00* Test Item Value Reference Range Interpretation Comments Potassium Level (test code = 2823-3) 4.6 3.5-5.1 [facility] TexasChloride [id number] 02:00:00* Test Item Value Reference Range Interpretation Comments Chloride Level (test code = 2075-0) 107 98-107 [facility] TexasCarbon Dioxide [id number] 02:00:00* Test Item Value Reference Range Interpretation Comments Carbon Dioxide Level (test code = 2028-9) 22 - [facility] TexasAnion [id number] 02:00:00* Test Item Value Reference Range Interpretation Comments Anion Gap (test code = 87646-5) 12.6 8-16 [facility] TexasBlood Urea [id number] 02:00:00* Test Item Value Reference Range Interpretation Comments Blood Urea Nitrogen (test code = 3094-0) 10 7-26 [facility] TexasCreatinine2019-03-29 02:00:00* Test Item Value Reference Range Interpretation Comments Creatinine (test code = 2160-0) 0.66 0.57-1.11 [facility] TexasBUN/Creatinine [id number] 02:00:00* Test Item Value Reference Range Interpretation Comments BUN/Creatinine Ratio (test code = 3097-3) 15 6-25 [facility] TexasEstimat Glomerular Filtration Rate 2018-05-04 02:00:00* Test Item Value Reference Range Interpretation Comments Estimat Glomerular Filtration Rate (test code = 483519424) > 60 >60 Ranges were taken from the National Kidney Disease Education Program and the [facility] [employer] literature.Reference ranges:60 or greater: Wqxqzg08-51 ( for 3 consecutive months): Chronic kidney disease 15 or less: Kidney failureWoman's Hospital of TexasGlucose [id number] 02:00:00* Test Item Value Reference Range Interpretation Comments Glucose Level (test code = DGJ8681) 102 74-118 [facility] TexasCalcium [id number] 02:00:00* Test Item Value Reference Range Interpretation Comments Calcium Level (test code = 40066-3) 10.2 8.4-10.2 [facility] TexasMagnesium [id number] 02:00:00* Test Item Value Reference Range Interpretation Comments Magnesium Level (test code = 38093-5) 1.7 1.3-2.1 [facility] TexasTotal [id number] 02:00:00* Test Item Value Reference Range Interpretation Comments Total Bilirubin (test code = 1975-2) 0.2 0.2-1.2 [facility] TexasAlanine Aminotransferase (ALT/SGPT) 2018-05-04 02:00:00* Test Item Value Reference Range Interpretation Comments Alanine Aminotransferase (ALT/SGPT) (test code = 1742-6) < 6 0-55 [facility] TexasTotal [id number] 02:00:00* Test Item Value Reference Range Interpretation Comments Total Protein (test code = 2885-2) 6.3 6.5-8.1 L [facility] TexasAlbumin2019-03-29 02:00:00* Test Item Value Reference Range Interpretation Comments Albumin (test code = 1751-7) 2.2 3.5-5.0 L [facility] TexasGlobulin2019-03-29 02:00:00* Test Item Value Reference Range Interpretation Comments Globulin (test code = 46260-7) 4.1 2.3-3.5 H [facility] TexasAlbumin/Globulin [id number] 02:00:00 * Test Item Value Reference Range Interpretation Comments Albumin/Globulin Ratio (test code = 1759-0) 0.5 0.8-2.0 L [facility] TexasAlkaline [id number] 02:00:00* Test Item Value Reference Range Interpretation Comments Alkaline Phosphatase (test code = 6768-6) 117 40-150 [facility] TexasLACTIC [id number] 23:18:00* Test Item Value Reference Range Interpretation Comments LACTIC ACID (test code = LACT) 0.9 MMOL/L 0.4-1.9 N DRUGS OF ABUSE SCREEN [id number] 22:54:00* Test Item Value Reference Range Interpretation Comments URN COCAINE (test code = COCAURN) NEGATIVE NEGATIVE URN CANNABINOIDS (test code = CANNABURN) NEGATIVE NEGATIVE URN AMPHETAMINE (test code = AMPHETURN) NEGATIVE NEGATIVE URN BARBITURATE (test code = BARBITURN) NEGATIVE NEGATIVE URN BENZODIAZEPINE (test code = BENZOURN) NEGATIVE NEGATIVE URN OPIATES (test code = OPIATURN) NEGATIVE NEGATIVE URN PHENCYCLIDINE (PCP) (test code = PHENCURN) NEGATIVE NEGATIV E URINALYSIS [id number] 22:49:00* Test Item Value Reference Range Interpretation Comments UA COLOR (test code = COLU) YELLOW YELLOW UA APPEARANCE (test code = APPU) HAZY CLEAR A UA GLUCOSE DIPSTICK (test code = DGLUU) NORMAL mg/dL NEGATIVE UA BILIRUBIN DIPSTICK (test code = BILU) NEGATIVE mg/dL NEGATIVE UA KETONE DIPSTICK (test code = KETU) neg mg/dL NEGATIVE UA SPECIFIC GRAVITY (test code = SGU) 1.015 1.001-1.035 UA BLOOD DIPSTICK (test code = HESHAM) 10 (Trace) Narendra/uL NEGATIVE A UA PH DIPSTICK (test code = JASIEL) 6.5 5.0-8.0 UA PROTEIN DIPSTICK (test code = PROU) 100 (2+) mg/dL Neg-15 A UA UROBILINIOGEN DIPSTICK (test code = URO) norm mg/dL 0.0-0.2 UA NITRITE DIPSTICK (test code = ASTRID) NEGATIVE NEGATIVE UA LEUKOCYTE ESTERASE DIPSTICK (test code = LEUU) 25 (Trace) uL NEG ATIVE A UA WBC (test code = WBCU) 3-5 per HPF 0-5 IN SOME URINARY TRACT INFECTIONS THERE MAY NOT BE ENOUGHWBCs IN THE URINE TO TRIGGER AN AUTOMATIC (REFLEX) URINECULTURE. A SEPERATE ORDER FOR URINE CULTURE IS RECOMMENDEDIF THERE IS STRONG SUPPORT FOR A URINARY TRACT INFECTIONCLINICALLY. UA RBC (test code = RBCU) 0-2 per HPF 0-5 UA EPITHELIAL CELLS (test code = EPIU) Moderate (5-10/hpf) per HPF Few UA BACTERIA (test code = BACU) MODERATE per HPF NONE A Urine Source? Clean CatchURINALYSIS [id number] 22:45:00* Test Item Value Reference Range Interpretation Comments UA COLOR (test code = COLU) YELLOW YELLOW UA APPEARANCE (test code = APPU) HAZY CLEAR A UA GLUCOSE DIPSTICK (test code = DGLUU) NORMAL mg/dL NEGATIVE UA BILIRUBIN DIPSTICK (test code = BILU) NEGATIVE mg/dL NEGATIVE UA KETONE DIPSTICK (test code = KETU) neg mg/dL NEGATIVE UA SPECIFIC GRAVITY (test code = SGU) 1.015 1.001-1.035 UA BLOOD DIPSTICK (test code = HESHAM) 10 (Trace) Narendra/uL NEGATIVE A UA PH DIPSTICK (test code = JASIEL) 6.5 5.0-8.0 UA PROTEIN DIPSTICK (test code = PROU) 100 (2+) mg/dL Neg-15 A UA UROBILINIOGEN DIPSTICK (test code = URO) norm mg/dL 0.0-0.2 UA NITRITE DIPSTICK (test code = ASTRID) NEGATIVE NEGATIVE UA LEUKOCYTE ESTERASE DIPSTICK (test code = LEUU) 25 (Trace) uL NEG ATIVE A UA WBC (test code = WBCU) per HPF 0-5 Urine Source? Clean CatchCOMPREHENSIVE METABOLIC [id number] 22:33:00* Test Item Value Reference Range Interpretation Comments SODIUM (test code = NA) 138 mmol/L 135-148 N POTASSIUM (test code = K) 4.5 mmol/L 3.5-5.1 N CHLORIDE (test code = CL) 104 mmol/L 101-109 N CARBON DIOXIDE (test code = CO2) 20.4 mmol/L 21-32 L ANION GAP (test code = GAP) 18 mmol/L 10-20 N GLUCOSE (test code = GLU) 117 mg/dL 74-106 H BLOOD UREA NITROGEN (test code = BUN) 10 mg/dL 3-21 N CREATININE (test code = CREAT) 0.61 mg/dL 0.55-1.3 N BUN/CREATININE RATIO (test code = BUN/CREA) 16.4 10-20 N TOTAL PROTEIN (test code = PROT) 7.0 g/dL 6.5-8.4 N ALBUMIN (test code = ALB) 2.3 g/dL 3.4-4.8 L GLOBULIN (test code = GLOB) 4.7 G/DL 1-10 N ALBUMIN/GLOBULIN RATIO (test code = A/G) 0.5 RATIO 0.75-1.50 L CALCIUM (test code = CA) 9.1 mg/dL 8.4-10.2 N BILIRUBIN TOTAL (test code = BILT) 0.20 mg/dL 0.0-1.0 N SGOT/AST (test code = AST) 14 U/L 6-32 N SGPT/ALT (test code = ALT) 13 U/L 12-78 N N ote: Change in REFERENCE RANGE due to new reagent method. ALKALINE PHOSPHATASE TOTAL (test code = ALKP) 113 U/L 38-126 N [id number] 22:33:00* Test Item Value Reference Range Interpretation Comments MAGNESIUM (test code = MAG) 1.6 mg/dL 1.6-2.3 N CPK-MB [id number] 22:33:00* Test Item Value Reference Range Interpretation Comments CREATINE KINASE (CK) (test code = CK) 55 U/L 26-192 N CKMB (test code = CKMBT) 0.9 ng/mL 0.0-5.0 N RELATIVE % INDEX (test code = REL%) 1.6 % [id number] 22:33:00* Test Item Value Reference Range Interpretation Comments TROPONIN-I (test code = TROPI) <0.015 ng/mL 0.00-0.056 N PROTHROMBIN [id number] 22:31:00* Test Item Value Reference Range Interpretation Comments PROTHROMBIN TIME PATIENT (test code = PTP) 9.0 seconds 9.0-13.0 N INTERNATIONAL NORMAL RATIO (test code = INR) 0.8 0.8-1.2 N The therapeutic range for oral anticoagulant therapy formost indications is an international normalized ratio (INR)of between 2.0 and 3.0. The recommended therapeutic INRrange for various clinical situations is listed below: Clinical Situation INR range Pulmonary e mbolism treatment (2.0-3.0)Venous thrombosis treatmentVenous thrombosis prophylaxis (high risk surgery)Prevention of systemic embolism from: Acute myocardial infarction Valvular heart disease Atrial fibrillation Mechanical prosthetic heart valves (2.5-3.5) IS PATIENT ON ANTICOAGULANTS? NTHROMBOPLASTIN TIME [id number] 22:31:00* Test Item Value Reference Range Interpretation Comments THROMBOPLASTIN TIME PARTIAL (test code = PTT) 25.2 seconds 25.5-34. 3 L Therapeutic Range for patients on Heparin Therapy is 2 to2.5 times their baseline PTT level. IS PATIENT ON ANTICOAGULANTS? N- XR CHEST 1 [id number] 22:25:00 Name: YAYA YE [facility] : 1995 Age/S:22 /F [address] [facility] Unit#:[id number] Loc: [place] [address] Phys: Angelica Michelle MD Dis Date: PHONE #: [phone] Status: REG FAX #: [phone] Exam Date: 04/16/2018 Re ason: tachycardic EXAMS: CPT CODE: [id number] XR CHEST 1 V 53683 EXAM: Chest X-ray, 1 view; CLINICAL HISTORY: Tachycardia, dizziness; FINDINGS: The lungs are clear, no infiltrates, no edema; no effusions; no pneumothora x; normal cardiomediastinal silhouette. IMPRESSION: Normal chest x-ray. at 2225 Reported and signed by: Pavan Dillon M.D. CC: Rosemarie Silveira CNM; Taya Michelle MD chnologist: [facility] Trnscrpt Data : 04/16/2018 (4169) [email or web address] Orig Print D/T: S: 2018 (5615) PAGE 1 Signed Report COMPREHENSIVE METABOLIC [id number] 22:20:00* Test Item Value Reference Range Interpretation Comments SODIUM (test code = NA) 138 mmol/L 135-148 N POTASSIUM (test code = K) 4.5 mmol/L 3.5-5.1 N CHLORIDE (test code = CL) 104 mmol/L 101-109 N CARBON DIOXIDE (test code = CO2) 20.4 mmol/L 21-32 L ANION GAP (test code = GAP) 18 mmol/L 10-20 N GLUCOSE (test code = GLU) 117 mg/dL 74-106 H BLOOD UREA NITROGEN (test code = BUN) 10 mg/dL 3-21 N CREATININE (test code = CREAT) 0.61 mg/dL 0.55-1.3 N BUN/CREATININE RATIO (test code = BUN/CREA) 16.4 10-20 N TOTAL PROTEIN (test code = PROT) gram/dL 6.4-8.2 ALBUMIN (test code = ALB) g/dL 3.4-5.0 GLOBULIN (test code = GLOB) g/dL 2.7-4.2 ALBUMIN/GLOBULIN RATIO (test code = A/G) 0.75-1.50 CALCIUM (test code = CA) 9.1 mg/dL 8.4-10.2 N BILIRUBIN TOTAL (test code = BILT) mg/dL 0.2-1.2 SGOT/AST (test code = AST) IUnit/L 15-37 SGPT/ALT (test code = ALT) U/L 10-69 ALKALINE PHOSPHATASE TOTAL (test code = ALKP) IUnit/L 45-117 [id number] 22:20:00* Test Item Value Reference Range Interpretation Comments MAGNESIUM (test code = MAG) mg/dL 1.8-2.4 CPK-MB [id number] 22:20:00* Test Item Value Reference Range Interpretation Comments CREATINE KINASE (CK) (test code = CK) IUnit/L 26-208 CKMB (test code = CKMBT) ng/mL 0-6.0 RELATIVE % INDEX (test code = REL%) % [id number] 22:20:00* Test Item Value Reference Range Interpretation Comments TROPONIN-I (test code = TROPI) ng/mL 0-0.045 CBC W/AUTO [id number] 22:17:00* Test Item Value Reference Range Interpretation Comments WHITE BLOOD CELL (test code = WBC) 16.1 K/mm3 4.5-12.5 H RED BLOOD CELL (test code = RBC) 3.90 mill/mm3 3.7-5.2 N HEMOGLOBIN (test code = HGB) 10.9 gram/dL 11.5-15.5 L HEMATOCRIT (test code = HCT) 34.0 % 36.0-46.0 L MEAN CELL VOLUME (test code = MCV) 87.2 fL 80-98 N MEAN CELL HGB (test code = MCH) 27.9 picogram 27.0-33.0 N MEAN CELL HGB CONCETRATION (test code = MCHC) 32.1 gram/dL 33.0-36. 0 L RED CELL DISTRIBUTION WIDTH (test code = RDW) 14.4 % 11.6-16. 2 N RED CELL DISTRIBUTION WIDTH SD (test code = RDW-SD) 44.5 fL 39 .1-52.0 N PLATELET COUNT (test code = PLT) 369 K/mm3 150-450 N MEAN PLATELET VOLUME (test code = MPV) 9.2 fL 6.7-11.0 N NEUTROPHIL % (test code = NT%) 78.5 % 39.0-69.0 H LYMPHOCYTE % (test code = LY%) 13.4 % 25.0-55.0 L MONOCYTE % (test code = MO%) 6.8 % 0.0-10.0 N EOSINOPHIL % (test code = EO%) 1.1 % 0.0-5.0 N BASOPHIL % (test code = BA%) 0.2 % 0.0-1.0 N NEUTROPHIL # (test code = NT#) 12.60 K/mm3 1.8-7.7 H LYMPHOCYTE # (test code = LY#) 2.16 K/mm3 1.0-5.0 N MONOCYTE # (test code = MO#) 1.09 K/mm3 0-0.8 H EOSINOPHIL # (test code = EO#) 0.18 K/mm3 0.0-0.5 N BASOPHIL # (test code = BA#) 0.03 K/mm3 0.0-0.2 N MANUAL DIFF REQUIRED (test code = MDIFF) NO
--- NOTE | 2019-10-15 09:59 | Emergency Department Note ---
History of Present Illnes History of Present Illness Chief Complaint: Eye, Ear, Nose, Throat, Dental History of Present Illness This is a 23 year old female PATIENT IN FROM HOME WITH COMPLAINTS OF MOUTH AND TONGUE PAIN SINCE RINSING WITH A HOMEMADE REMEDY LAST NIGHT FOR DENTAL PAIN; STATES SHE IS NOT SURE WHAT IS IN IT, BUT KNOWS THERE WAS BLEACH. Historian: Patient Arrival Mode: Car Hot Oiler Required: No Onset (how long ago): hour(s) (LAST NIGHT) Location: MOUTH Quality: BURNING PAIN Radiation: Reports non-radiation Severity: moderate Onset quality: gradual Timing of current episode: constant Progression: worsening Chronicity: new Context: Denies recent illness Relieving factors: none Exacerbating factors: none Associated symptoms: Reports denies other symptoms Past Medical/Family History Physician Review I have reviewed the patient's past medical and family history. Any updates have been documented here. Past Medical History Recent Fever: No Clinical Suspicion of Infectio: No New/Unexplained Change in Ment: No Past Medical History: None, Diabetes Past Surgical History: Social History Smoking Cessation: Never Smoker Counseling Performed: No Alcohol Use: None Any Illegal Drug Use: No TB Exposure/Symptoms: No Physically hurt or threatened: No Other Any Pre-Existing Lines (PICC,: No Review of Systems Review of Systems Constitutional: Reports no symptoms EENTM: Reports as per HPI Cardiovascular: Reports no symptoms Respiratory: Reports no symptoms Gastrointestinal: Reports no symptoms Genitourinary: Reports no symptoms Musculoskeletal: Reports no symptoms Integumentary: Reports no symptoms Neurological: Reports no symptoms Psychological: Reports no symptoms Endocrine: Reports no symptoms Hematological/Lymphatic: Reports no symptoms Physical Exam Related Data Allergies: Coded Allergies: No Known Allergies (Unverified , 10/15/19) Triage Vital Signs Vital Signs Date Time Temp Pulse Resp B/P (MAP) Pulse Ox O2 Delivery O2 Flow Rate FiO2 10/15/19 09:37 97.8 91 18 162/84 100 Room Air Vital signs reviewed: Yes Physical Exam CONSTITUTIONAL Constitutional: Present well-developed, Present well-nourished HENT HENT: Present other (ORAL MUCOSA ERYTHEMATOUS, TINY PUNCTATE BLISTERS ON LOWER INNER LIP, PHARYNX MILD ERYTHEMA) HENT L/R: Present left ext ear normal, Present right ext ear normal EYES Eyes: Reports PERRL, Reports conjunctivae normal NECK Neck: Present ROM normal PULMONARY Pulmonary: Present effort normal, Present breath sounds normal CARDIOVASCULAR Cardiovascular: Present regular rhythm, Present heart sounds normal, Present capillary refill normal, Present normal rate GASTROINTESTINAL Abdominal: Present soft, Present nontender, Present bowel sounds normal GENITOURINARY Genitourinary: Present exam deferred SKIN Skin: Present warm, Present dry MUSCULOSKELETAL Musculoskeletal: Present ROM normal NEUROLOGICAL Neurological: Present alert, Present oriented x 3, Present no gross motor or sensory deficits PSYCHOLOGICAL Psychological: Present mood/affect normal, Present judgement normal Assessment & Plan Medical Decision Making MDM ORAL MUCOSA IRRITATION FROM HOME REMEDY Reassessment Reassessment DC HOME, BENADRYL/PEPCID DIRECTED, MEDROL DOSE KEILY Assessment & Plan Final Impression: (1) Oral mucositis Depart Disposition: HOME, SELF-CARE Last Vital Signs Date Time Temp Pulse Resp B/P (MAP) Pulse Ox O2 Delivery O2 Flow Rate FiO2 10/15/19 09:37 97.8 91 18 162/84 100 Room Air THONY FERREIRA MD Oct 15, 2019 09:59
== END 2019-10-15 09:55 | disposition home or self-care (01) ==
LOC: ER 09:55
DX: K12.30 Oral mucositis (ulcerative), unspecified (principal); E11.9 Type 2 diabetes mellitus without complications
CPT/HCPCS: 99283